=== PATIENT | female | born 1935 | race Two or more races ===

== ENCOUNTER 2018-05-09 01:33 | Emergency (ER) | payer SELFPAY ==
[2018-05-09] MEDS: NITROGLYCERIN OINT 1 GM PACKET. TP (02:25)
[2018-05-09 02:31] LABS: ADD MAN DIFF? NO
[2018-05-09 02:33] LABS: BASO % 1 % (0-3); EOS # 0.1 x10^3/uL (0.0-0.7); EOS % 1 % (0-3); HEMATOCRIT 43.9 % (36.0-47.0); HEMOGLOBIN 15.1 g/dL (12.0-15.5); LYMPH # 1.9 x10^3/uL (1.0-4.8); LYMPH % 23 % (24-48); MEAN CORPUSCULAR HEMOGLOBIN 32 pg (25-35); MEAN CORPUSCULAR HGB CONC 34 g/dL (31-37); MEAN CORPUSCULAR VOLUME 93 fL (79-100); MONO % 12 % (0-9); NEUT # 5.3 x10^3uL (1.8-7.7); NEUT % 63 % (31-73); PLATELET COUNT 209 x10^3/uL (140-400); RED BLOOD COUNT 4.75 x10^6/uL (3.50-5.40); RED CELL DISTRIBUTION WIDTH 14.4 % (11.5-14.5); WHITE BLOOD COUNT 8.3 x10^3/uL (4.0-11.0)
[2018-05-09 02:45] LABS: ANION GAP 5 (6-14); BLOOD UREA NITROGEN 20 mg/dL (7-20); BUN/CREATININE RATIO 20 (6-20); CALCIUM 9.2 mg/dL (8.5-10.1); CARBON DIOXIDE 27 mmol/L (21-32); CHLORIDE 99 mmol/L (98-107); GFR 53.2; GLUCOSE 104 mg/dL (70-99); POTASSIUM 4.6 mmol/L (3.5-5.1); SODIUM 131 mmol/L (136-145)
[2018-05-09 02:49] LABS: INR 1.1 (0.8-1.1); PROTHROMBIN TIME PATIENT 13.3 SEC (11.7-14.0)
[2018-05-09 02:50] LABS: ALBUMIN 3.6 g/dL (3.4-5.0); ALBUMIN/GLOBULIN RATIO 1.1 (1.0-1.7); ALK PHOS 123 U/L (46-116); ALT (SGPT) 11 U/L (14-59); AST (SGOT) 22 U/L (15-37); C-REACTIVE PROTEIN 2.2 mg/L (0-3.3); MAGNESIUM 1.8 mg/dL (1.8-2.4); TOTAL BILIRUBIN 0.7 mg/dL (0.2-1.0); TOTAL PROTEIN 6.8 g/dL (6.4-8.2)
[2018-05-09 02:52] LABS: TROPONINI 0.053 ng/mL (0.000-0.055)
[2018-05-09 02:56] LABS: NT-PRO BNP 802 pg/mL (0-449)
[2018-05-09] MEDS: LABETALOL 20 MG/4 ML DISP.SYRIN. IVP (03:15)
== END 2018-05-09 04:37 | disposition home or self-care (01) ==
LOC: ER 01:33
DX: I10 Essential (primary) hypertension (principal); E11.9 Type 2 diabetes mellitus without complications; E78.00 Pure hypercholesterolemia, unspecified; E03.9 Hypothyroidism, unspecified; Z90.49 Acquired absence of other specified parts of digestive tract; Z88.8 Allergy status to other drugs, medicaments and biological substances; Z88.5 Allergy status to narcotic agent
CPT/HCPCS: 36415; 70450; 71045; 80053; 83735; 83880; 84484; 85025; 85610; 86140; 93005; 96374; 96375; 99284; 99285-25; J2060; J3490